=== PATIENT | female | born 1990 | race African-American/Black ===

== ENCOUNTER 2017-08-13 23:58 | Emergency (ER) | payer MEDICAID ==
[~2017-08-13] VITALS: Ht 154.9 cm; Wt 76.2 kg
[~2017-08-13 23:58] MED LIST: MACROBID100 MG ORAL; NKM; ZOFRAN4 M1 ORAL
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
[2017-08-14] MEDS ORDERED: Methocarbamol 750mg tab ORAL ONE (00:30)
[2017-08-14] MEDS ORDERED: ROBAXIN500 MG PO (00:44)
[2017-08-14] MEDS ORDERED: IBUPROFEN600 MG ORAL (00:44)
[2017-08-14 00:49] VITALS: BP 104/62
[2017-08-14 00:55] VITALS: BP 104/62
--- NOTE | 2017-08-14 11:04 | Diagnostic Imaging Report ---
Indication: Reason For Exam: PAIN Technique: 3 views of the right ankle Comparison: none Findings: No acute fractures. No dislocations. The joint spaces are preserved. Impression: Negative
== END 2017-08-14 00:55 | disposition home or self-care (01) ==
LOC: EMR 08-14 00:19
DX: S16.1XXA Strain of muscle, fascia and tendon at neck level, initial encounter (principal); S93.401A Sprain of unspecified ligament of right ankle, initial encounter; V49.9XXA Car occupant (driver) (passenger) injured in unspecified traffic accident, initial encounter; Y92.410 Unspecified street and highway as the place of occurrence of the external cause
CPT/HCPCS: 99284

== ENCOUNTER 2019-05-27 09:06 | Emergency (ER) | payer MEDICAID ==
[~2019-05-27] VITALS: Ht 152.4 cm; Wt 77.1 kg
[~2019-05-27 09:06] MED LIST changes: +IBUPROFEN600 MG ORAL; +ROBAXIN500 MG PO
[2019-05-27 09:14] VITALS: BP 98/68
--- NOTE | 2019-05-27 09:42 | Emergency Room Report ---
History of Present Illness General Chief Complaint: Chest Pain Source: Patient Present Illness HPI Patient is a 28-year-old female presents after increased epigastric pain for 1 day. She reports having increased sharp pain to the epigastric area. She denies any vomiting. Denies any prior surgeries. She reports having some increased pain with movements. Denies any diarrhea or vomiting. She denies cough. She states she smokes marijuana regularly. Denies cigarette smoking no prior family history of cardiac disease. Allergies: Coded Allergies: No Known Allergies (Unverified , 06/15/13) Patient History Past Medical History: see triage record Last Menstrual Period: none Now: No Reviewed Nursing Documentation: PMH: Agreed; PSxH: Agreed Nursing Documentation-PMH Past Medical History: No Stated History Review of Systems All Other Systems: negative except mentioned in HPI Physical Exam Vital Signs Date Time Temp Pulse Resp B/P (MAP) Pulse Ox O2 Delivery O2 Flow Rate FiO2 05/27/19 09:14 97.9 85 18 98/68 (78) 97 Room Air Sp02 EP Interpretation: reviewed, normal General Appearance: normal inspection, well appearing, no apparent distress, alert, GCS 15 Head: atraumatic ENT: normal ENT inspection, hearing grossly normal, normal voice Neck: normal inspection, full range of motion, supple, no bony tend Respiratory: normal inspection, lungs clear, normal breath sounds, no respiratory distress, no retraction, no wheezing Cardiovascular #1: regular rate, rhythm, no edema Gastrointestinal: normal inspection, normal bowel sounds, non tender, soft, no guarding, no hernia Genitourinary: no CVA tenderness Musculoskeletal: normal inspection, back normal, normal range of motion Neurologic: alert, motor strength/tone normal, chief investigator III-XII nml as tested, oriented x3, responsive, speech normal, normal inspection Psychiatric: normal inspection, judgement/insight normal, mood/affect normal Medical Decision Making Diagnostic Impression: Primary Impression: Atypical chest pain ER Course Patient presented for chest pain. Differential diagnosis include was not limited to gastritis, pancreatitis, ulcer, pneumothorax among others. EKG interpreted by me shows normal sinus rhythm with a rate of [address] or T wave changes. Chest x-ray was ordered. Patient was given breathing treatment as well as GI cocktail.Patient was advised smoking cessation. She did have some mild improvement in her symptoms. Patient appears to be stable for outpatient management. There is no evidence of pneumothorax or EKG abnormalities. Patient does not have any known risk factor for pulmonary embolism. PERC negative. This medical record is generated with [employer]moco curbstone setter software. There may be some curbstone setter discrepancies related to use of this software Labs Test 05/27/19 09:20 Urine HCG, Qualitative Negative (NEGATIVE) EKG Diagnostic Results Rate: normal Rhythm: NSR ST Segments: no acute changes Last Vital Signs Date Time Temp Pulse Resp B/P (MAP) Pulse Ox O2 Delivery O2 Flow Rate FiO2 05/27/19 09:37 85 18 Room Air 05/27/19 09:14 97.9 98/68 97 Status: improved Disposition: HOME, SELF-CARE Condition: Stable Scripts Albuterol Sulfate* (ALBUTEROL SULFATE MDI*) 8.5 Gm Hfa.aer.ad 2 PUFF INH Q6H, #1 INH 0 Refills Prov: Simon Blanco MD 05/27/19 Ibuprofen* (MOTRIN*) 600 Mg Tablet 600 MG ORAL Q8H PRN for For Pain, #30 TAB 0 Refills Prov: Simon Blanco MD 05/27/19 Referrals: NON PHYSICIAN (PCP) Simon Blanco MD May 27, 2019 09:42
[2019-05-27] MEDS ORDERED: Dicyclomine HCl 10mg/5ml oral soln ORAL ONE (09:45)
[2019-05-27] MEDS ORDERED: Lidocaine 2% Visc 15ml soln ORAL ONE (09:45)
[2019-05-27] MEDS ORDERED: Albuterol/Ipratropium 3ml neb HHN ONE (10:15)
[2019-05-27] MEDS ORDERED: ALBUTEROL SULF8.5 GM INH ×3 (10:39→11:36)
[2019-05-27] MEDS ORDERED: IBUPROFEN600 MG ORAL ×3 (10:39→11:36)
[2019-05-27] MEDS ORDERED: NKM (11:10)
[2019-05-27 11:35] VITALS: BP 102/65
[2019-05-27 11:42] VITALS: BP 102/65
--- NOTE | 2019-05-27 12:41 | Diagnostic Imaging Report ---
Indication: Chest pain Technique: One view of the chest Comparison: none Findings: Lungs and pleural spaces are clear. Heart size is normal. Impression: No acute process
--- NOTE | 2019-06-06 13:56 | Cardiology Report ---
APPROVED REPORT EKG Measurement Heart [id number] <Conclusion> Normal sinus rhythm Normal ECG
== END 2019-05-27 11:42 | disposition home or self-care (01) ==
LOC: EMR 09:30
DX: R07.9 Chest pain, unspecified (principal); R10.13 Epigastric pain
CPT/HCPCS: 71045; 81025; 93005; Z7502; 99284; J7620